=== PATIENT | male | born 1985 | race Two or more races ===

== ENCOUNTER 2023-03-10 07:45 | Outpatient (CLI) | payer OTHER ==
--- NOTE | 2023-03-12 08:41 | MRI Report ---
PROCEDURE: CERVICAL SPINE WO INDICATIONS: CERVICALGIA, LOW BACK PAIN TECHNIQUE: Noncontrast sagittal T1 spin echo and T2 fast spin echo, sagittal STIR, foraminal oblique sagittal T2 fast spin echo, and axial gradient echo or T2 fast spin echo through the cervical spine. COMPARISON: None. FINDINGS: Image quality: Excellent. Alignment and Curvature: There is normal bony alignment. Bone Marrow: Marrow demonstrates normal overall signal. Spinal Cord: Visualized spinal cord has normal size and signal. No cerebellar tonsillar herniation. Paraspinous Soft Tissues: No paravertebral masses. Prevertebral soft tissues are normal in thicknes s. C2-C3: Normal in appearance. C3-C4: Normal in appearance. C4-C5: Mild central posterior disc protrusion indenting on the ventral cord without canal stenosis. Left facet hypertrophy. C5-C6: Mild disc bulge. No canal stenosis. Mild bilateral uncovertebral joint hypertrophy. Mild bila teral foraminal stenosis. C6-C7: No canal stenosis or foraminal stenosis. C7-T1: No canal stenosis or foraminal stenosis. IMPRESSION: 1. At C4-C5, there is a mild central posterior disc protrusion, indenting on the ventral cord, withou t canal stenosis. 2. No canal stenosis or foraminal stenosis. Reviewed by: Carlos A Shook MD on 03/12/2023 8:39 AM PDT Approved by: Carlos A Shook MD on 03/12/2023 8:39 AM PDT Station ID: [id number]
--- NOTE | 2023-03-12 09:12 | MRI Report ---
PROCEDURE: LUMBAR SPINE WO INDICATIONS: CERVICALGIA, LOW BACK PAIN TECHNIQUE: Noncontrast sagittal T1 spin echo and T2 fast echo, sagittal STIR, axial T1 and T2 fast spin echo thr ough the lumbar spine. In cases with scoliosis, additional coronal T2 fast spin echo may be performe d. COMPARISON: None. FINDINGS: Image quality: Excellent. Alignment and Curvature: There is normal bony alignment. Bone Marrow: Marrow is of normal overall signal. No acute vertebral body compression fractures. Spinal Cord: Conus medullaris terminates at the L1-L2 level. Visualized cord demonstrates normal si gnal and size. Paraspinous Soft Tissues: No paravertebral masses. T12-L1: Normal in appearance. L1-L2: Normal in appearance. L2-L3: Normal in appearance. L3-L4: Mild facet hypertrophy. No canal stenosis or foraminal stenosis. L4-L5: Mild facet hypertrophy. No canal stenosis or foraminal stenosis. L5-S1: Mild facet hypertrophy. No canal stenosis or foraminal stenosis. IMPRESSION: 1. Mild multilevel lower lumbar facet hypertrophy. 2. No canal stenosis or foraminal stenosis. Reviewed by: Carlos A Shook MD on 03/12/2023 9:11 AM PDT Approved by: Carlos A Shook MD on 03/12/2023 9:11 AM PDT Station ID: [id number]
== END 2023-03-10 07:46 | disposition home or self-care (01) ==
LOC: DI 07:45
PROVIDERS: ATTEND Physician Assistant
DX: M47.816 Spondylosis without myelopathy or radiculopathy, lumbar region (principal); M50.221 Other cervical disc displacement at C4-C5 level

== ENCOUNTER 2024-03-05 15:37 | Outpatient (CLI) | payer OTHER ==
--- NOTE | 2024-03-05 16:15 | Sleep Patient Instructions ---
Sleep Center Visit Summary - Patient Visit Information Reason for Visit: Initial consult for evaluation of sleep disordered breathing and other sleep issues. - Patient Instructions Instructions Attached: Sleep Study Additional Instructions: You will be completing a sleep study, either an in-lab polysomnography (PSG) or home sleep study (HST). You will follow-up in the sleep care office after the sleep study is completed to hear the results and talk about therapy, if needed. You will be called by our office staff to schedule this appointment, but you may contact us with any questions. - Clinic Information Contact: [facility] [address] [place] [address] [email or web address] T: [phone]
--- NOTE | 2024-03-05 16:18 | SLEEP CARE CONSULTATION ---
Information from patient questionnaire entered by Radha Patel. I have reviewed and concur with the information entered by Radha Patel. This document represents the service I personally performed and the decisions made by me, Xiomy Willoughby ARNP. History of Present Illness Service Date and Time: 03/05/2024 1537 Reason for Visit: New patient Chief Complaint: reports: Unrefreshed sleep, Snoring, Observed pauses in breathing, Fatigue, Frequent awakenings at night Date of Onset: ON AND OFF THE LAST 3YRS Usual bedtime: 4122-6989 Time it takes to fall asleep: 5-10MINS Snores at night: Yes Observed to quit breathing while asleep: Yes Sleeps alone due to snoring: Yes Number of times waking at night: 3-4 Reasons for waking at night: reports: Snoring, Gasping for air (occasionally, 2- 3 times during the week), Other. denies: Choking Toss, Turn, or Twitch while sleeping: Yes Recalls having dreams: Yes Usually gets out of bed at: 0530 Feels refreshed in the morning: No Morning headache: No Sleepy or fatigued during the day: Yes Ever fallen asleep while driving: No Takes day naps: No Dreams during day naps: No Prior sleep studies: No Additional HPI information: I had the pleasure of seeing NATHAN BENÍTEZ today regarding the possibility of him having a sleep disorder. His current complaints are fatigue, frequent night awakenings, observed pauses in breathing, snoring and unrefreshed sleep. Since 2019, he has had had trouble with sleep. He has no problem falling asleep but will wake up 3-4 times a night. He will sometimes take Benadryl to try to stay asleep. His has told him he snores loudly and will sleep in other room sometimes. He feels lethargic in the mornings when it is time to get up. He says throughout day he is alert but is exhausted by end of day. He tries to avoid falling asleep on couch. He would like to be able to sleep throughout the night without interruption and longer. He has a hard time getting back to sleep after waking up between [id number]. He is working on from the [employer]. - Parasomnia Symptoms Ever been unable to move upon waking from sleep: Yes (rare, 5-6 times in last 4 yrs) Walks in sleep: No Talks in sleep: Yes Ever acted out dreams in sleep: No Ever felt weak in the knees when startled or emotional: No Bothered by creepy, crawly, restless sensations in legs: No Problems with memory or concentration: Yes (both) Subjective Initial [place] Sleepiness Scale score: 12 (03/05/24) Past Medical History Past Medical History: reports: Other (no significant medical history) Social History The patient's occupation is a AM. Patient is and lives in [place]. Have you smoked in the past 12 months: No Cigarettes per day (20/pack): 20 Years of smokin Quit date: 2014 Smoking Pack Years: 2.0 Alcohol use: Yes Alcohol amount and frequency: 1-2 CANS 2 X A MONTH Caffeine use: Yes Caffeine amount and frequency: 1 20OZ CUP 1X DAILY Family History Family history of sleep disordered breathing: Yes Family Hx Sleep Apnea: Mother: Snoring, Father: Snoring, Sleep apnea - Treated, Sibling: Snoring, Grandparent: Snoring, Sleep apnea - Treated Allergies and Home Medications Known drug allergies: No Drug allergies reviewed: Yes Home medication list reviewed: Yes (as listed) Allergy and home medication list: Allergies No Known Drug Allergies Allergy (Verified 03/05/24 15:40) Home Medications Melatonin/Magnesium Citrate [Slowmag mg Calm-Sleep Tablet] See Rx Instructions .ROUTE .COMPLEX 03/05/24 [History] Review of Systems Weight gain over past 5 years: 20 Cardiovascular: denies: high blood pressure Gastrointestinal: reports: diarrhea. denies: heartburn Neurological: denies: headaches Psychiatric: reports: anxiety, depression Ear/Nose/Throat: denies: tonsillectomy Musculoskeletal: reports: neck pain, back pain Immunologic: reports: sneezing Physical Exam Vital signs obtained and entered by: RADHA Mcnair MA Blood Pressure: 125/86 (LEFT ARM) Cuff size: regular Heart Rate: 69 O2 Saturation: 98 Height: 5 ft 9 in Weight: 197 lb 12.8 oz Body Mass Index: 29.2 BMI Classification: Overweight Neck circumference: 16.25 Mouth and throat: narrow oropharynx Soft palate: long Hard palate: normal Uvula: normal Uvula visualization: 50% Mallampati Class II Tongue: enlarged in size with teeth guzman on lateral edges Tonsils: small Neck: normal w/o lymphadenopathy or thyromegaly Heart: regular rate and rhythm Lungs: clear bilaterally Impression and Plan 1. Suspected Obstructive Sleep Apnea-Hypopnea Syndrome, as suggested by a history of loud and irregular snoring, observed cessation of breath while asleep, gasping or choking in sleep, frequent awakening during the night, unrefreshed sleep and cognitive impairment. Narrow oropharynx and obesity are common predisposing factors for obstructive sleep apnea-hypopnea syndrome. I recommend proceeding to polysomnography to confirm the diagnosis and to assess severity. If the patient has significant sleep disordered breathing, a manual CPAP titration study will also be performed to find the optimal treatment pressure. I informed the patient of what the sleep studies involve and after some discussion, obtained agreement to proceed. The pathophysiology of obstructive sleep apnea-hypopnea syndrome was discussed with the patient and health risks of cardiovascular and cerebrovascular disease if not treated. Risks of drowsy driving discussed in detail and patient advised to avoid long distance driving and to heat treat puller at the first sign of drowsiness. Patient agreed to plan. * Schedule polysomnography * Avoid long distance driving or driving when feeling sleepy. * Avoid alcohol, sedative and muscle relaxant around bedtime. * Attempt to lose weight. * Review instructions provided by trained office staff on how to prepare for the sleep study. * Return for follow-up after sleep study completed. Counseling Topics: Weight loss health impact Plan: PSG and followup Visit Type: In Office Time Spent with Patient (minutes): 30 Provider Statement: I spent 100% of the Face to Face Visit with the patient with greater than 50% spent counseling the patient and coordination of care.
[2024-03-05 16:23] VITALS: BP 125/86; O2SAT 98
== END 2024-03-05 15:38 | disposition home or self-care (01) ==
LOC: SC 15:37
PROVIDERS: ATTEND Nurse Practitioner Family
DX: R06.83 Snoring (principal); R06.81 Apnea, not elsewhere classified; G47.8 Other sleep disorders; G47.10 Hypersomnia, unspecified; R41.89 Other symptoms and signs involving cognitive functions and awareness
CPT/HCPCS: 99203; 99212

== ENCOUNTER 2024-04-02 19:25 | Outpatient (CLI) | payer OTHER | END 2024-04-02 19:26 | disposition home or self-care (01) | LOC: SC 19:25 | PROVIDERS: ATTEND Nurse Practitioner Family | DX: R06.83 Snoring (principal); G47.8 Other sleep disorders; R06.81 Apnea, not elsewhere classified; R53.83 Other fatigue; E66.3 Overweight; Z68.29 Body mass index [BMI] 29.0-29.9, adult | CPT/HCPCS: 95810 ==

== ENCOUNTER 2024-04-24 13:23 | Outpatient (CLI) | payer OTHER ==
--- NOTE | 2024-04-24 13:47 | Sleep Patient Instructions ---
Sleep Center Visit Summary - Patient Visit Information Reason for Visit: Sleep study follow-up - Patient Instructions Instructions Attached: Snoring Tips Prevent Additional Instructions: Your sleep study today was negative for significant sleep disordered breathing. You were found to have episodes of snoring. There are different ways to control snoring including weight loss, oral devices made by a dentist or surgical options through ENT specialist. You should not use oral devices that do not fit properly because they can affect your bite. You should also check insurance coverage of oral devices for snoring because they may not be cover well. You may obtain a referral to an ENT specialist through your primary provider. Follow-up as needed. - Clinic Information Contact: [facility] [address] [place] [address] [email or web address] T: [phone]
--- NOTE | 2024-04-24 13:50 | SLEEP CARE CONSULTATION ---
Information from patient questionnaire entered by Go Cooper. I have reviewed and concur with the information entered by Go Cooper. This document represents the service I personally performed and the decisions made by , Xiomy Willoughby ARNP. History of Present Illness Service Date and Time: 04/24/2024 1323 Initial [place] Sleepiness Scale score: 12 (03/05/24) Current [place] Sleepiness Scale score: 15 (04/24/24) Additional HPI information: NATHAN BENÍTEZ returns for follow up and results of the recently performed polysomnography done on 04/02/24. The patient was informed of the following findings: No significant sleep disorde red breathing with an average AHI of 2.1 and char oxygen saturation of 88%. I explained the pathophysiology behind obstructive sleep apnea. Patient does not have sleep apnea and was advised how weight gain could increase the risk of developing sleep apnea in the future. I strongly encouraged the patient to lose weight. Patient has moderate snoring. Snoring can be reduced by weight loss. Weight loss is best achieved with diet consult. Patient instructed to contact PCP for referral. Snoring can also be treated with an oral appliance from a dentist. Advised to check insurance coverage. In addition, an ENT evaluation can be do to see if other treatment is indicated. Patient counseled not drink alcohol less than 4 hours before bedtime as it can increase snoring and apnea. Patient was cautioned about risks of drowsy driving until sleepiness symptoms resolve. Sleep Study - Results Type of Sleep Study: Polysomnography Prior sleep studies: No Polysomnography/Home Sleep Study results: IMPRESSION: The quality of the study is good. The patient had normal sleep efficiency. The sleep architecture was relatively normal as well considering the first-night effect. Respiratory monitoring showed no significant sleep disordered breathing (AHI = 2.1) or hypoxia (char oxygen saturation of 88%). The patient slept mostly supine (supine AHI = 2.6; non-supine = 0.00). Snore was light to moderate in intensity. There was no significant periodic leg movement of sleep. Cardiac rhythm was normal sinus rhythm without significant arrhythmia. No abnormal behavior (parasomnia) observed during the night. Allergies and Home Medications Known drug allergies: No Drug allergies reviewed: Yes Home medication list reviewed: Yes (no changes) Allergy and home medication list: Allergies No Known Drug Allergies Allergy Review of Systems Review of systems same as previous: Yes (no changes) Physical Exam Vital signs obtained and entered by: Xiomy Sherman NP Blood Pressure: 138/84 Cuff size: long (left arm) Heart Rate: 75 O2 Saturation: 97 Height: 5 ft 9 in Weight: 200 lb 9.6 oz Body Mass Index: 29.6 BMI Classification: Overweight Impression and Plan 1. Snoring but no significant sleep disordered breathing. Patient advised that often weight loss will reduce snoring as well as apnea risk. An oral appliance can also be used for snoring. This would require a dental consultation. Patient cautioned not to use other online appliances as can cause bite issues. Patient is advised to check if insurance will cover. An ENT consult can also be helpful to determine if any other treatment is an option. 2. Overweight, unspecified. Currently patients BMI is 29.6. Obesity increases the risk of apnea, CPAP pressure requirements and overall health risks especially cardiovascular and diabetes. Thus patient is advised to lose weight. * Attempt to lose weight * Avoid alcohol consumption near bedtime * The patient is cautioned about driving until sleepiness is completely resolved. * Return as needed for follow up. Counseling Topics: Weight loss health impact Follow up with Sleep Care in: as needed Visit Type: In Office Time Spent with Patient (minutes): 16 Provider Statement: I spent 100% of the Face to Face Visit with the patient with greater than 50% spent counseling the patient and coordination of care.
[2024-04-24 13:53] VITALS: BP 138/84; O2SAT 97
== END 2024-04-24 13:24 | disposition home or self-care (01) ==
LOC: SC 13:23
PROVIDERS: ATTEND Nurse Practitioner Family
DX: R06.83 Snoring (principal); E66.3 Overweight; Z68.29 Body mass index [BMI] 29.0-29.9, adult
CPT/HCPCS: 99212